=== PATIENT | male | born 1965 | race Two or more races ===

== ENCOUNTER 2020-03-13 00:53 | Emergency (ER) | payer SELFPAY ==
[~2020-03-13] VITALS: Ht 165.1 cm; Wt 81.6 kg
[2020-03-13] MEDS ORDERED: IBUPROFEN 400 MG TABLET ONE (01:13)
[2020-03-13] MEDS: IBUPROFEN 400 MG TABLET PO ONE ×2 (01:16→02:17)
--- NOTE | 2020-03-13 01:16 | NUR ---
XRAY AT BEDSIDE
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
--- NOTE | 2020-03-13 01:27 | NUR ---
[employer] AT BEDSIDE TALKING TO PT
--- NOTE | 2020-03-13 01:30 | NUR ---
[facility] INCIDENT # [id number]
--- NOTE | 2020-03-13 02:16 | NUR ---
PT TEACHING GIVEN TO PT ON HOW TO USE CRUTCHES
--- NOTE | 2020-03-13 02:22 | NUR ---
Patient discharged to home in stable condition. Written and verbal after care instructions given. Patient verbalizes understanding of instruction. Pt is ambulatory w/ a use of crutches.
[2020-03-13 02:23] VITALS: BP 138/92
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
== END 2020-03-13 02:24 | disposition home or self-care (01) ==
LOC: ER 00:53
DX: S93.492A Sprain of other ligament of left ankle, initial encounter (principal); W18.39XA Other fall on same level, initial encounter; Y93.89 Activity, other specified; Y92.89 Other specified places as the place of occurrence of the external cause; Y99.8 Other external cause status
CPT/HCPCS: 73610-TC